=== PATIENT | female | born 1975 | race Caucasian/White ===

== ENCOUNTER 2017-01-07 15:12 | Emergency (ER) | payer OTHER | END 2017-01-07 16:52 | disposition home or self-care (01) | LOC: FER 15:12 | DX: K59.00 Constipation, unspecified (principal) | CPT/HCPCS: 74022; 99283 ==

== ENCOUNTER 2022-01-24 17:14 | Emergency (ER) | payer OTHER ==
[~2022-01-24 17:14] MED LIST: ESTRADIOL1 MG PO
== END 2022-01-24 19:27 | disposition home or self-care (01) ==
LOC: FER 17:14
DX: S81.012A Laceration without foreign body, left knee, initial encounter (principal); Z23 Encounter for immunization; W20.8XXA Other cause of strike by thrown, projected or falling object, initial encounter; Y92.89 Other specified places as the place of occurrence of the external cause; Y99.0 Civilian activity done for income or pay
CPT/HCPCS: 90471; 90715

== ENCOUNTER 2022-06-23 10:42 | Emergency (ER) | payer OTHER ==
[2022-06-23 11:21] LABS: BILIRUBIN NEGATIVE (NEGATIVE); BLOOD 1+ Ery/uL (NEGATIVE); CLARITY CLEAR (CLEAR); COLOR YELLOW (YELLOW); GLUCOSE (U) NORMAL (NORMAL); LEUKOCYTES NEGATIVE Leu/uL (NEGATIVE); NITRITE NEGATIVE (NEGATIVE); PROTEIN NEGATIVE (NEGATIVE); SPECIFIC GRAVITY <=1.005 (1.001-1.030); UROBILINOGEN 0.2 mg/dL (0.2-1.0)
[2022-06-23 11:31] LABS: BASOPHIL 1.5 % (0-2); HCT 48.4 % (37.0-47.0); HGB 15.9 g/dl (12.5-16.0); LYMPHOCYTE 33.7 % (15-48); MCH 31.4 pg (25.0-31.0); MCHC 32.9 g/dL (32.0-36.0); MCV 95.7 fL (78.0-100.0); MONOCYTE 16.4 % (0-12); MPV 9.6 fL (6.0-9.5); NEUTROPHIL 46.2 % (41-80); NRBC 0; PLT 276 K/uL (150-400); RBC 5.06 M/uL (4.20-5.40); RDW 12.1 % (11.5-14.0); WBC 5.4 K/uL (4.0-10.5)
[2022-06-23 11:50] LABS: ALBUMIN 3.8 g/dL (3.4-5.0); BILIRUBIN - TOTAL 0.3 mg/dL (0.2-1.0); BUN/CREAT RATIO (CALC) 13.4 RATIO; CREATININE 0.82 mg/dL (0.51-0.95); GLOBULIN (CALCULATION) 3.4 g/dL; POTASSIUM 3.5 mmol/L (3.5-5.1); TOTAL PROTEIN 7.2 g/dL (6.4-8.2)
[2022-06-23] MEDS ORDERED: NORCO 5-325 TA1 EACH PO (14:09)
[2022-06-23] MEDS ORDERED: METRONIDAZOLE500 MG PO (14:09)
[2022-06-23] MEDS ORDERED: ONDANSETRON ODT4 MG PO (14:09)
[2022-06-23] MEDS ORDERED: DIFLUCAN150 MG PO (14:09)
== END 2022-06-23 14:47 | disposition home or self-care (01) ==
LOC: FER 10:42
PROVIDERS: Emergency Medicine
DX: K52.9 Noninfective gastroenteritis and colitis, unspecified (principal); N39.0 Urinary tract infection, site not specified; F17.210 Nicotine dependence, cigarettes, uncomplicated
CPT/HCPCS: 36415; 80053; 81001; 82150; 83690; 85025; J1885; J2405; J7030; Q9967